=== PATIENT | female | born 1995 | race American Indian/Alaskan Native ===

== ENCOUNTER 2020-10-08 15:33 | Emergency (ER) | payer SELFPAY ==
[2020-10-08] MEDS ORDERED: IBUPROFEN 600 MG TAB PO ONE (16:49)
--- NOTE | 2020-10-08 17:09 | Emergency Department Report ---
ED ENT HPI - General Chief complaint: Sore Throat Stated complaint: TONILITIS FLARE UP Time Seen by Provider: 10/08/20 16:49 Source: patient Mode of arrival: Ambulatory Limitations: No Limitations - History of Present Illness Initial comments: Patient is a 25-year-old female presents emergency room with complaints of a tonsillitis flareup which began 2 days ago. She has associated sore throat, pain with swallowing, fever, left ear pain. She states that she is still able to tolerate p.o. intake and her secretions but just has pain with swallowing. She states that she last had tonsillitis a few years ago. She denies any recent antibiotics within the last 3 months. She denies any cough, vomiting, diarrhea. She denies any known sick contacts. She denies any recent travel. She has a past medical history of asthma. No allergies to medications. Last menstrual cycle 09/17/2020. - Related Data Previous Rx's Medication Instructions Recorded Last Taken Type Penicillin Vk [Veetids TAB] 500 mg PO BID 10 Days #40 tablet 10/08/20 Unknown Rx Allergies Allergy/AdvReac Type Severity Reaction Status Date / Time No Known Allergies Allergy Unverified 10/08/20 16:17 ED Dental HPI - General Chief complaint: Sore Throat Stated complaint: TONILITIS FLARE UP Time Seen by Provider: 10/08/20 16:49 Source: patient Mode of arrival: Ambulatory Limitations: No Limitations - Related Data Previous Rx's Medication Instructions Recorded Last Taken Type Penicillin Vk [Veetids TAB] 500 mg PO BID 10 Days #40 tablet 10/08/20 Unknown Rx Allergies Allergy/AdvReac Type Severity Reaction Status Date / Time No Known Allergies Allergy Unverified 10/08/20 16:17 ED Review of Systems ROS: Stated complaint: TONILITIS FLARE UP Other details as noted in HPI Comment: All other systems reviewed and negative ED Past Medical Hx - Past Medical History Hx Asthma: Yes - Social History Smoking Status: Never Smoker - Medications Home Medications: Home Medications Medication Instructions Recorded Confirmed Last Taken Type Penicillin Vk [Veetids TAB] 500 mg PO BID 10 Days #40 tablet 10/08/20 Unknown Rx ED Physical Exam - General Limitations: No Limitations General appearance: alert, in no apparent distress - Head Head exam: Present: atraumatic, normocephalic - Eye Eye exam: Present: normal appearance - ENT ENT exam: Present: mucous membranes moist, TM's normal bilaterally, normal external ear exam, other (posterior oropharynx erythema, mild bilaterally tonsillar hypertrophy with exudates, uvula is midline, no uvular edema or deviation, tolerating secretions, no muffled voice, no tongue elevation, no trismus ) ED Course Vital Signs 10/08/20 10/08/20 15:58 17:41 Temperature 101.6 F H 100.2 F H Pulse Rate 110 H 91 H Respiratory 18 16 Rate Blood Pressure 121/67 Blood Pressure 118/74 [Left] O2 Sat by Pulse 100 100 Oximetry ED Medical Decision Making - Lab Data Vital Signs 10/08/20 10/08/20 15:58 17:41 Temperature 101.6 F H 100.2 F H Pulse Rate 110 H 91 H Respiratory 18 16 Rate Blood Pressure 121/67 Blood Pressure 118/74 [Left] O2 Sat by Pulse 100 100 Oximetry - Medical Decision Making Patient is a 25-year-old female presents emergency room with complaints of a tonsillitis flareup which began 2 days ago. She has associated sore throat, pain with swallowing, fever, left ear pain. She states that she is still able to tolerate p.o. intake and her secretions but just has pain with swallowing. She states that she last had tonsillitis a few years ago. She denies any recent antibiotics within the last 3 months. She denies any cough, vomiting, diarrhea. She denies any known sick contacts. She denies any recent travel. She has a past medical history of asthma. No allergies to medications. Last menstrual cycle 09/17/2020. Initial vitals with fever and elevated heart rate which improved upon ibuprofen administration. On exam: posterior oropharynx erythema, mild bilaterally tonsillar hypertrophy with exudates, uvula is m idline, no uvular edema or deviation, tolerating secretions, no muffled voice, no tongue elevation, no trismus. Examination appears consistent with tonsillitis. Patient given prescription for penicillin VK. Advised patient Please take medication as prescribed to completion. Increase your water intake. Throw away your toothbrush. Do warm salt water gargles 3-5 times a day. Do not drink after others or allow others to drink after you. Follow-up with your primary care doctor. Return to emergency room for any new or worsening symptoms. - Differential Diagnosis Tonsillitis, pharyngitis, tonsillolith, sialoadenitis, viral, mononucleosis Critical care attestation.: If time is entered above; I have spent that time in minutes in the direct care of this critically ill patient, excluding procedure time. ED Disposition Clinical Impression: Tonsillitis Disposition: TO HOME OR SELFCARE Is pt being admited?: No Does the pt Need Aspirin: No Condition: Stable Instructions: Tonsillitis, [id number] Additional Instructions: Please take medication as prescribed to completion. Increase your water intake. Throw away your toothbrush. Do warm salt water gargles 3-5 times a day. Do not drink after others or allow others to drink after you. Follow-up with your primary care doctor. Return to emergency room for any new or worsening symp toms. Prescriptions: Penicillin Vk [Veetids TAB] 500 mg PO BID 10 Days #40 tablet Referrals: LAURA LARIOS MD [Staff Physician] - 2-3 Days [facility] [Provider Group] - 2-3 Days [facility], [LAB/CONTRACT] - 2-3 Days Time of Disposition: 17:16 Print Language: SLOVAK
[2020-10-08 17:42] VITALS: BP 118/74
== END 2020-10-08 17:56 | disposition home or self-care (01) ==
LOC: ED 15:33
DX: J03.90 Acute tonsillitis, unspecified (principal); J45.909 Unspecified asthma, uncomplicated; Z79.899 Other long term (current) drug therapy
CPT/HCPCS: 99282

== ENCOUNTER 2021-04-12 02:31 | Emergency (ER) | payer SELFPAY | END 2021-04-12 03:00 | LOC: ED 02:31 | DX: O26.891 Other specified pregnancy related conditions, first trimester (principal); E86.0 Dehydration; Z3A.09 9 weeks gestation of pregnancy; Z53.21 Procedure and treatment not carried out due to patient leaving prior to being seen by health care provider ==

== ENCOUNTER 2021-04-30 17:53 | Emergency (ER) | payer SELFPAY | END 2021-04-30 19:20 | disposition left against medical advice (07) | LOC: ED 17:53 | DX: R42 Dizziness and giddiness (principal); Z53.21 Procedure and treatment not carried out due to patient leaving prior to being seen by health care provider ==

== ENCOUNTER 2021-05-04 21:30 | Emergency (ER) | payer MEDICAID ==
[2021-05-04 23:09] VITALS: BP 89/56
[2021-05-05 00:24] LABS: Basophils # (Auto) 0.1 K/mm3 (0.0-0.1); Basophils % (Auto) 0.4 % (0.0-1.8); Eosinophils # (Auto) 0.1 K/mm3 (0.0-0.4); Hematocrit 32.8 % (30.3-42.9); Hemoglobin 11.2 gm/dl (10.1-14.3); Lymphocytes # (Auto) 1.4 K/mm3 (1.2-5.4); Lymphocytes % (Auto) 9.3 % (13.4-35.0); Mean Corpuscular HGB Conc 34 % (30-34); Mean Corpuscular Volume 94 fl (79-97); Monocytes # (Auto) 1.6 K/mm3 (0.0-0.8); Monocytes % (Auto) 10.1 % (0.0-7.3); Platelet Count 247 K/mm3 (140-440); Red Blood Count 3.49 M/mm3 (3.65-5.03); Red Cell Distribution Width 12.3 % (13.2-15.2)
== END 2021-05-05 00:50 | disposition left against medical advice (07) ==
LOC: ED 21:30
DX: O20.9 Hemorrhage in early pregnancy, unspecified (principal); Z3A.01 Less than 8 weeks gestation of pregnancy; Z53.21 Procedure and treatment not carried out due to patient leaving prior to being seen by health care provider
CPT/HCPCS: 36415; 84702; 85025; 86900; 86901

== ENCOUNTER 2022-06-26 00:10 | Inpatient (IN) | payer MEDICAID ==
[2022-06-26] MEDS ORDERED: CARBOPROST TROMETHAMINE 250 MCG/1 ML INJ IM PRN (01:05)
[2022-06-26] MEDS ORDERED: LOPERAMIDE 2 MG CAP PO PRN (01:05)
[2022-06-26] MEDS ORDERED: BUTORPHANOL 2 MG/1 ML INJ IV PRN (01:05)
[2022-06-26] MEDS ORDERED: OXYTOCIN 10 UNIT/1 ML INJ IM PRN (01:05)
[2022-06-26] MEDS ORDERED: ACETAMINOPHEN 325 MG TAB PO PRN ×2 (01:05→08:30)
[2022-06-26] MEDS ORDERED: miSOPROStol 200 MCG TAB PR PRN (01:05)
[2022-06-26] MEDS ORDERED: TERBUTALINE 1 MG/1 ML INJ SUB-Q PRN (01:05)
[2022-06-26] MEDS ORDERED: LIDOCAINE (2%) 20 MG/1 ML VIAL 20 ML MDV INFILTRATI ONE (01:05)
[2022-06-26] MEDS ORDERED: AMPICILLIN/NS 2 GM/100 ML 2 GM/100 ML BAG IV ONE (01:05)
[2022-06-26] MEDS ORDERED: ePHEDrine SULFATE 50 MG/1 ML INJ IV PRN (01:05)
[2022-06-26] MEDS ORDERED: MINERAL OIL 30 ML ORAL LIQD PO PRN (01:05)
[2022-06-26] MEDS ORDERED: METHYLERGONOVINE MALEATE 0.2 MG/ML VIAL IM PRN (01:05)
[2022-06-26] MEDS ORDERED: fentaNYL 100 MCG/2 ML INJ IV PRN (01:05)
[2022-06-26] MEDS ORDERED: LACTATED RINGERS 1,000 ML IV SCH (01:15)
--- NOTE | 2022-06-26 01:35 | History and Physical Report ---
History of Present Illness Date of examination: 06/26/22 Date of admission: 06/26/22 Chief complaint: c/o uc times several hours History of present illness: 27 y/o presented to [facility] @ 41.1 wks with c/o reg uc. She admits to adq FM and denies VB, or LOF. Pt states she initiated her pnc @ [facility] @ 6 mos preg. She reports no complications, and a medical hx of childhood asthma and anemia which she took Fe throughout the preg. Ob hx unremarkable. Reports 2 term vag deliveries. Pt admits to gall bladder surgery in 2012 and a left salpingectomy in 2018 r/t an ectopic preg. Pt states she drinks and smokes marijuana occ, and reports a family hx of DM. She was found to be postdates and in active labor and was admitted to L&D for delivery. Past History Past Medical History: asthma, other (anemia) Past Surgical History: cholecystectomy, other (salpingectomy) Family/Genetic History: diabetes Social history: single, smoking, full code - Obstetrical History Expected Date of Delivery: 06/19/22 Actual Gestation: 41 Week(s) 0 Day(s) : 3 Para: 2 Hx # Term Pregnancies: 2 Number of Living Children: 2 Medications and Allergies Allergies Allergy/AdvReac Type Severity Reaction Status Date / Time No Known Allergies Allergy Unverified 10/08/20 16:17 Home Medications Medication Instructions Recorded Confirmed Last Taken Type Penicillin Vk [Veetids TAB] 500 mg PO BID 10 Days #40 tablet 10/08/20 Unknown Rx Active Meds: Active Medications Acetaminophen (Acetaminophen 325 Mg Tab) 650 mg PO Q4H PRN PRN Reason: Pain, Mild (1-3) Butorphanol Tartrate (Butorphanol 2 Mg/1 Ml Inj) 1 mg IV Q2H PRN PRN Reason: Pain, Moderate(4-6) LABOR PAIN Butorphanol Tartrate (Butorphanol 2 Mg/1 Ml Inj) 2 mg IV Q2H PRN PRN Reason: Pain , Severe (7-10) Carboprost Tromethamine (Carboprost Tromethamine 250 Mcg/1 Ml Inj) 250 mcg IM ONCE PRN PRN Reason: Uterine Bleeding Ephedrine Sulfate (Ephedrine Sulfate 50 Mg/1 Ml Inj) 10 mg IV Q2M PRN PRN Reason: Hypotension Fentanyl (Fentanyl 100 Mcg/2 Ml Inj) 100 mcg IV Q2H PRN PRN Reason: Pain,Severe (7-10) LABOR PAIN Oxytocin/Sodium Chloride (Pitocin/Ns 30 Unit/500ml) 30 units in 500 mls @ 2 mls/hr IV TITR BLANCA; Protocol Lactated Ringer's (Lactated Ringers) 1,000 mls @ 125 mls/hr IV DIRECT BLANCA Oxytocin/Sodium Chloride (Pitocin/Ns 30 Unit/500ml) 30 units in 500 mls @ 40 mls/hr IV TITR BLANCA; Protocol Ampicillin Sodium (Ampicillin/Ns 1 Gm/50 Ml) 1 gm in 50 mls @ 100 mls/hr IV Q4H BLANCA; Protocol Ampicillin Sodium (Ampicillin/Ns 2 Gm/100 Ml) 2 gm in 100 mls @ 100 mls/hr IV ONCE ONE; Protocol Stop: 06/26/22 02:04 Lidocaine (Lidocaine (2%) 20 Mg/1 Ml Vial 20 Ml Mdv) 20 ml INFILTRATI ONCE ONE Stop: 06/26/22 01:06 Loperamide HCl (Loperamide 2 Mg Cap) 2 mg PO ONCE PRN PRN Reason: give with Hemabate Methylergonovine Maleate (Methylergonovine Maleate 0.2 Mg/Ml Vial) 0.2 mg IM ONCE PRN PRN Reason: Uterine Bleeding Mineral Oil (Mineral Oil 30 Ml Oral Liqd) 30 ml PO QHS PRN PRN Reason: Constipation Misoprostol (Misoprostol 200 Mcg Tab) 800 mcg CO ONCE PRN PRN Reason: Uterine Bleeding Oxytocin (Oxytocin 10 Unit/1 Ml Inj) 10 unit IM ONCE PRN PRN Reason: Uterine Bleeding Terbutaline Sulfate (Terbutaline 1 Mg/1 Ml Inj) 0.25 mg SUB-Q ONCE PRN PRN Reason: Hyperstimulation/Hypertonicity Review of Systems All systems: negative Eyes: deferred Ears, nose, mouth and throat: deferred Breasts: normal Genitourinary: normal appearance Rectal Exam: normal exam-external/orifice - Vital Signs Vital signs: Vital Signs Pulse BP 51 L 101/65 06/26/22 00:52 06/26/22 00:52 Temp Pulse Resp BP Pulse Ox 51 L 101/65 06/26/22 01:05 06/26/22 01:05 - Physical Exam Breasts: Positive: normal Cardiovascular: Regular rate Lungs: Positive: Clear to auscultation Abdomen: Positive: normal appearance, soft, normal bowel sounds Genitourinary (Female): Positive: normal external genitalia, normal perenium Vulva: both: normal Vagina: Positive: normal moisture Uterus: Positive: normal size, enlarged, normal contour, other (gravid) Adnexa: both: normal Anus/Rectum: Positive: normal perianal skin Extremities: Positive: normal - Obstetrical FHR: auscultation normal, category 1 Uterine Contraction Monitor Mode: External Cervical Dilatation: 6 Cervical Effacement Percentage: 80 station: -1 Uterine Contraction Pattern: Irregular Uterine Tone Measurement Phase: Resting Uterine Contraction Intensity: Mild Results All other labs normal. Assessment and Plan A: IUP@ 41 wks (post dates) Late PNC Hx of Anemia Hx childhood asthma GBS unknown Marijuana smoker P: Admit to L&D Continuous monitoring GBS protocol Pain med/Epidural prn Anticipate - Patient Problems (1) Supervision of normal IUP (intrauterine ) in multigravida Current Visit: Yes Status: Acute (2) GBS screening not performed Current Visit: Yes Status: Acute
[2022-06-26] MEDS ORDERED: OXYTOCIN DRIP 30 UNITS/500 ML BAG IV SCH ×2 (02:00)
[2022-06-26 02:42] LABS: Hematocrit 35.4 % (30.3-42.9); Hemoglobin 11.9 gm/dl (10.1-14.3); Mean Corpuscular HGB Conc 34 % (30-34); Mean Corpuscular Volume 96 fl (79-97); Platelet Count 147 K/mm3 (140-440); Red Blood Count 3.71 M/mm3 (3.65-5.03); Red Cell Distribution Width 13.2 % (13.2-15.2)
[2022-06-26] MEDS: BUTORPHANOL 2 MG/1 ML INJ IV PRN ×2 (03:33→06:30)
[2022-06-26] MEDS ORDERED: AMPICILLIN/NS 1 GM/50 ML 1 GM/50 ML BAG IV SCH (06:00)
[2022-06-26] MEDS ORDERED: LANOLIN/ZINC/DIMETHICONE (LANSINOH) 7 GM TP PRN (08:05)
--- NOTE | 2022-06-26 08:22 | Procedure Note ---
OB Delivery Note - Delivery Date of Delivery: 06/26/22 Surgeon: TI BAI Estimated blood loss: other (QBL 50cc) - Vaginal Delivery presentation: vertex Delivery position: OA Delivery induction: none Delivery augmentation: rupture of membranes, pitocin Delivery monitor: external FHT, external uterine Route of delivery: Delivery placenta: spontaneous Delivery cord: 3 umbilical vessels, other (intact with extra lobe) Episiotomy: none Delivery laceration: none Anesthesia: intravenous Delivery comments: of a viable male in OA position over light mec. immediately to mom's chest for skin to skin bonding. Delayed cord clamping while nurse dried and stimulated baby. Cord was clamped x2 by CNM and cut by FOB. Infant was taken to warmer for an asses 8/9. Spontaneous delivery of intact placenta with 3cv and extra lobe. FF @ 3fb U with fundal massage and IV Pitocin. QBL 50cc. Mom and baby were left in stable condition with nurses. - Infant A at 1 minute: 8 at 5 minutes: 9 Infant Gender: Male ( wt 3100 Gms)
[2022-06-26] MEDS ORDERED: WITCH HAZEL/ GLYCERIN PAD TP PRN (08:30)
[2022-06-26] MEDS ORDERED: diphenhydrAMINE 25 MG CAP PO PRN (08:30)
[2022-06-26] MEDS ORDERED: oxyCODONE /ACETAMINOPHEN 5-325MG TAB PO PRN (09:00)
[2022-06-26] MEDS ORDERED: PROMETHAZINE 25 MG TAB PO PRN (09:00)
[2022-06-26] MEDS ORDERED: ONDANSETRON 4 MG/2 ML INJ IV PRN (09:00)
[2022-06-26] MEDS ORDERED: PROMETHAZINE 25 MG RECT SUPP PR PRN (09:00)
[2022-06-26] MEDS: IBUPROFEN 800 MG TAB PO SCH ×3 (10:17→21:02)
[2022-06-26] MEDS: PRENATAL VIT27-FE FUMARATE-FOLIC ACID VIT TAB PO SCH (10:17)
[2022-06-26 12:41] LABS: Amphetamine Screen,Urine Negative; Benzodiazepines Screen,Urine Negative; Cocaine Screen,Urine Negative; Methadone Screen,Urine Negative; Opiate Screen,Urine Negative
[2022-06-26 12:54] LABS: Cannabinoid Screen,Urine Positive
[2022-06-26 19:12] LABS: Hematocrit 31.7 % (30.3-42.9); Hemoglobin 10.6 gm/dl (10.1-14.3)
[2022-06-26] MEDS ORDERED: MAGNESIUM HYDROXIDE (MOM) ORAL LIQD UDC PO PRN (22:00)
[2022-06-27] MEDS: IBUPROFEN 800 MG TAB PO SCH ×2 (03:47→09:58)
[2022-06-27] MEDS ORDERED: TETANUS,DIPH,PERTUSS(ACELL) VACCINE 0.5 ML SYRINGE IM ONE (04:30)
[2022-06-27] MEDS: PRENATAL VIT27-FE FUMARATE-FOLIC ACID VIT TAB PO SCH (09:58)
--- NOTE | 2022-06-27 13:26 | Progress Note ---
Assessment and Plan PPD#1 doing well 1. Routine care and discharge pt home Subjective Date of service: 06/27/22 Principal diagnosis: PPD#1 Interval history: pt has no complaints and pt wants to go home. pt is bottle feeding. vag bleed less than a period and declines contraception. Objective - Constitutional Vitals: Vital Signs - 12hr 06/27/22 06/27/22 07:30 07:51 Temperature 97.9 F Pulse Rate 69 Respiratory 18 Rate Blood Pressure 93/55 O2 Sat by Pulse 98 Oximetry O2 Sat by Pulse 98 Oximetry [ Bilateral] General appearance: Present: no acute distress - Neck Neck: normal ROM - Respiratory Respiratory effort: normal - Breasts Breasts: deferred - Cardiovascular Rhythm: regular Extremities: No edema - Gastrointestinal General gastrointestinal: Present: soft, non-tender - Genitourinary Female genitourinary: other (fundus firm 2cm below umbilicus and non-tender) - Integumentary Integumentary: warm, dry - Neurologic Neurologic: moves all extremities - Psychiatric Psychiatric: cooperative - Labs CBC & Chem 7: 06/26/22 18:53 Medications & Allergies - Medications Allergies/Adverse Reactions: Allergies No Known Allergies Allergy (Verified 06/26/22 01:14) Home Medications: Home Medications Medication Instructions Recorded Confirmed Last Taken Type Penicillin Vk [Veetids TAB] 500 mg PO BID 10 Days #40 tablet 10/08/20 Unknown Rx Active Medications: Generic Name Dose Route Start Last Admin Trade Name Freq PRN Reason Stop Dose Admin Acetaminophen 650 mg 06/26/22 08:30 Acetaminophen 325 Mg Tab PO Q4H PRN Pain MILD(1-3)/Fever >100.5/PRESTON Bisacodyl 10 mg 06/26/22 10:00 Bisacodyl 10 Mg Rect Supp AR BID PRN Constipation Butorphanol Tartrate 1 mg 06/26/22 01:05 Butorphanol 2 Mg/1 Ml Inj IV Q2H PRN Pain, Moderate(4-6) LABOR PAIN Butorphanol Tartrate 2 mg 06/26/22 01:05 06/26/22 06:30 Butorphanol 2 Mg/1 Ml Inj IV 2 mg Q2H PRN Administration Pain , Severe (7-10) Carboprost Tromethamine 250 mcg 06/26/22 01:05 Carboprost Tromethamine 250 Mcg/1 Ml Inj IM ONCE PRN Uterine Bleeding Diphenhydramine HCl 25 mg 06/26/22 08:30 Diphenhydramine 25 Mg Cap PO Q6H PRN Itching Ephedrine Sulfate 10 mg 06/26/22 01:05 Ephedrine Sulfate 50 Mg/1 Ml Inj IV Q2M PRN Hypotension Fentanyl 100 mcg 06/26/22 01:05 Fentanyl 100 Mcg/2 Ml Inj IV Q2H PRN Pain,Severe (7-10) LABOR PAIN Oxytocin/Sodium Chloride 30 units in 500 mls @ 2 mls/hr 06/26/22 02:00 06/26/22 06:35 Pitocin/Ns 30 Unit/500ml IV 2 ml/hr TITR BLANCA 2 mls/hr Administration Protocol Lactated Ringer's 1,000 mls @ 125 mls/hr 06/26/22 01:15 Lactated Ringers IV DIRECT BLANCA Oxytocin/Sodium Chloride 30 units in 500 mls @ 40 mls/hr 06/26/22 02:00 06/26/22 08:41 Pitocin/Ns 30 Unit/500ml IV 165 ml/hr TITR BLANCA 165 mls/hr Administration Protocol Ampicillin Sodium 1 gm in 50 mls @ 100 mls/hr 06/26/22 06:00 06/26/22 06:30 Ampicillin/Ns 1 Gm/50 Ml IV 100 mls/hr Q4H BLANCA Administration Protocol Ibuprofen 800 mg 06/26/22 09:00 06/27/22 09:58 Ibuprofen 800 Mg Tab PO 800 mg Q6H BLANCA Administration Loperamide HCl 2 mg 06/26/22 01:05 Loperamide 2 Mg Cap PO ONCE PRN give with Hemabate Magnesium Hydroxide 30 ml 06/26/22 22:00 Magnesium Hydroxide (Mom) Oral Liqd Udc PO HS PRN Constipation Methylergonovine Maleate 0.2 mg 06/26/22 01:05 Methylergonovine Maleate 0.2 Mg/Ml Vial IM ONCE PRN Uterine Bleeding Mineral Oil 30 ml 06/26/22 01:05 Mineral Oil 30 Ml Oral Liqd PO QHS PRN Constipation Misoprostol 800 mcg 06/26/22 01:05 Misoprostol 200 Mcg Tab AR ONCE PRN Uterine Bleeding Multi-Ingredient Ointment 1 applic 06/26/22 08:05 06/27/22 04:00 Lanolin/Zinc/Dimethicone (Lansinoh) 7 Gm TP 1 applic PRN PRN Administration Sore Nipples Multivitamins/Iron/Calcium 1 each 06/26/22 10:00 06/27/22 09:58 [id number] Fumarate-Folic Acid Vit Tab PO 1 each QDAY BLANCA Administration Ondansetron HCl 4 mg 06/26/22 09:00 Ondansetron 4 Mg/2 Ml Inj IV Q8H PRN Nausea And Vomiting Oxycodone/Acetaminophen 1 tab 06/26/22 09:00 Oxycodone /Acetaminophen 5-325mg Tab PO Q6H PRN Pain, Moderate (4-6) Oxytocin 10 unit 06/26/22 01:05 Oxytocin 10 Unit/1 Ml Inj IM ONCE PRN Uterine Bleeding Promethazine HCl 25 mg 06/26/22 09:00 Promethazine 25 Mg Rect Supp AR Q6H PRN Nausea And Vomiting Promethazine HCl 25 mg 06/26/22 09:00 Promethazine 25 Mg Tab PO Q6H PRN Nausea And Vomiting Sodium Chloride 10 ml 06/26/22 09:00 Sodium Chloride 0.9% 10 Ml Flush Syringe IV 07/08/22 08:59 PRN NR Terbutaline Sulfate 0.25 mg 06/26/22 01:05 Terbutaline 1 Mg/1 Ml Inj SUB-Q ONCE PRN Hyperstimulation/Hypertonicity Witch Zhane/Glycerin 1 each 06/26/22 08:30 Witch Zhane/ Glycerin Pad TP PRN PRN Hemorrhoid/cleansing/soothing
--- NOTE | 2022-06-27 13:26 | Discharge Summary ---
Providers - Providers Date of Admission: 06/26/22 01:05 Date of discharge: 06/27/22 Attending physician: ROLY SALES 06/26/22 15:00 Consult to Case Management [CONS] Routine Services Needed at Discharge: [employer] Notified:: no Comment:: pt. THC + Primary care physician: ROLY SALES Hospitalization Reason for admission: IUP at term Delivery: Episiotomy: none Laceration: none Other procedures: none complications: none Discharge diagnosis: IUP at term delivered [place] baby: male Hospital course: term preg with uncomplicated vag delivery and course uneventful Condition at discharge: Good Disposition: 01 HOME / SELF CARE / HOMELESS Plan - Provider Discharge Summary Activity: routine Diet: routine Instructions: routine Additional instructions: [] Smoking cessation referral if applicable(refer to patient education folder for contact #) [] Refer to [facility]'s [facility] Booklet Call your doctor immediately for: * Fever > 100.5 * Heavy vaginal bleeding ( >1 pad per hour) * Severe persistent headache * Shortness of breath * Reddened, hot, painful area to leg or breast * Drainage or odor from incision. * Keep incision clean and dry at all times and follow doctor's instructions regarding bathing/showering - Follow up plan Follow up: ROLY SALES MD [Primary Care Provider] - 7 Days Forms: [facility] Discharge Summary
[2022-06-27 14:36] VITALS: BP 102/62
== END 2022-06-27 13:50 | disposition home or self-care (01) | DRG 775 ==
LOC: TRG 00:10 → APU 00:13 → LD 01:05 → TRG 08:12 → OB 11:38
PROVIDERS: ADMIT Obstetrics & Gynecology; ATTEND Obstetrics & Gynecology
PROC: 10E0XZZ Delivery of Products of Conception, External Approach (ICD-10-PCS; principal; 2022-06-26)
PROC: 3E0234Z Introduction of Serum, Toxoid and Vaccine into Muscle, Percutaneous Approach (ICD-10-PCS; 2022-06-27)
DX: O99.52 Diseases of the respiratory system complicating childbirth (principal); O99.324 Drug use complicating childbirth; Z20.822 Contact with and (suspected) exposure to COVID-19; Z37.0 Single live birth; Z3A.41 41 weeks gestation of pregnancy; Z23 Encounter for immunization; J45.909 Unspecified asthma, uncomplicated; O48.0 Post-term pregnancy; F12.90 Cannabis use, unspecified, uncomplicated
CPT/HCPCS: 36415; 80307; 85014; 85018; 85027; 86850; 86900; 86901; 90471; 90715; G0378; J0290; J0595; J2590; U0003